=== PATIENT | female | born 1960 | race Native Hawaiian/Other Pacific Islander ===

== ENCOUNTER 2018-10-29 08:50 | Emergency (ER) | payer SELFPAY ==
--- NOTE | 2018-10-29 10:08 | XRay Report ---
ROUTINE CHEST, TWO VIEWS: HISTORY: Chest pain. No comparison. There is very subtle airspace opacity in the left upper lobe and left lower lobe which could represent early pneumonia. The right lung is generally clear. No consolidation, pleural effusion or pneumothorax. Normal heart and mediastinal structures. The bony thorax is intact. IMPRESSION: Subtle infiltration is suspected in the left lung. Correlate for early pneumonia.
[2018-10-29] MEDS ORDERED: ZITHROMAX PO ONE (10:37)
[2018-10-29] MEDS ORDERED: PROVENTIL IH ONE (10:37)
--- NOTE | 2018-10-29 10:45 | Emergency Department Report ---
HPI - General Chief Complaint: Dyspnea/Respdistress Time Seen by Provider: 10/29/18 10:11 - HPI HPI: This is a 58-year-old female with a history of asthma who presents ED complaining of green productive cough 5-6 days. Patient also states that she has not been able to take her albuterol. Patient states the she does not have access to it at the moment. She denies chest pain. Patient admits mild difficulty breathing due to a flare up. She denies fevers/chills/nausea vomiting/chest pain/shortness of breath ED Past Medical Hx - Past Medical History Previous Medical History?: Yes Hx Asthma: Yes Additional medical history: Hypothyroid- not currently on medication due to no insurance - Surgical History Past Surgical History?: No Additional Surgical History: Partial hysterectomy 2000, left foot bunoin removal, screw in left foot - Social History Smoking Status: Never Smoker Substance Use Type: None - Medications Home Medications: Home Medications Medication Instructions Recorded Confirmed Last Taken Type ALBUTEROL Inhaler(NF) [VENTOLIN 1 puff IH BID #1 inha 10/29/18 Unknown Rx Inhaler(NF)] Azithromycin [Zithromax TAB] 500 mg PO QDAY #6 tablet 10/29/18 Unknown Rx Benzonatate [Tessalon Perles] 100 mg PO Q8HR #30 capsule 10/29/18 Unknown Rx Ibuprofen [Motrin] 800 mg PO Q8HR #30 tablet 10/29/18 Unknown Rx ED Review of Systems ROS: Stated complaint: ASTHMA Other details as noted in HPI Comment: All other systems reviewed and negative Physical Exam - Physical Exam Vital Signs: Vital Signs 10/29/18 08:54 Temperature 98.6 F Pulse Rate 94 H Respiratory 16 Rate Blood Pressure 139/85 O2 Sat by Pulse 100 Oximetry Physical Exam: GENERAL: Alert and oriented x3, no apparent distress, Normal Gait, atraumatic. HEAD: Head is normocephalic and a-traumatic. EYES: Extra ocular muscles are intact. Pupils are equal, round, and reactive to light and accommodation. NOSE: Nose symetrical, Nontender,Nares appeared normal. MOUTH:Mouth is well hydrated and without lesions. Tonsils nonerythematous or swollen, Uvula midline, Tongue not elevated. Mucous membranes are moist. Posterior pharynx clear, no exudate or lesions. Patent airways. NECK: Supple. Non edematous, No carotid bruits. No lymphadenopathy or thyromegaly. No C-spine tenderness.This is her muscles LUNGS: Symetrical with respiration, mild wheezing bilaterally , presently coughing intermittently. HEART: S1, S2 present, regular rate and rhythm without murmur, no rubs, no gallops. Non tender to palpation SKIN: Warm and dry, No lesions, No ulceration or induration present. ED Course Vital Signs 10/29/18 08:54 Temperature 98.6 F Pulse Rate 94 H Respiratory 16 Rate Blood Pressure 139/85 O2 Sat by Pulse 100 Oximetry ED Medical Decision Making - Radiology Data Radiology results: report reviewed, image reviewed Fluoro Time In Minutes: ROUTINE CHEST, TWO VIEWS: HISTORY: Chest pain. No comparison. There is very subtle airspace opacity in the left upper lobe and left lower lobe which could represent early pneumonia. The right lung is generally clear. No consolidation, pleural effusion or pneumothorax. Normal heart and mediastinal structures. The bony thorax is intact. IMPRESSION: Subtle infiltration is suspected in the left lung. Correlate for early pneumonia. Transcribed By: TTR Dictated By: LAMIN MAX JR, MD Electronically Authenticated By: LAMIN MAX JR, MD Signed Date/Time: 10/29/18 1004 - Medical Decision Making This 58-year-old female presents with evidence of pneumonia. Patient received 1g of azithromycin in the ED, albuterol treatment. Patient reports feeling better after administration. Discussed follow-up with primary care physician. Patient speaking in clear sentences, has no acute or respiratory distress. - Differential Diagnosis asthma bronchospasm, upper respiratory infection, pneumonia Critical care attestation.: If time is entered above; I have spent that time in minutes in the direct care of this critically ill patient, excluding procedure time. ED Disposition Clinical Impression: Pneumonia, URI with cough and congestion Disposition: DC-01 TO HOME OR SELFCARE Is pt being admited?: No Does the pt Need Aspirin: No Condition: Stable Instructions: Bacterial Pneumonia (ED), Community-acquired Pneumonia (ED), Upper Respiratory Infection (ED) Additional Instructions: Make sure to follow up with the primary care physician as discussed. Take all your medications as you've been prescribed. If you have any worsening symptoms or develop new symptoms please return to ED immediately. Prescriptions: ALBUTEROL Inhaler(NF) [VENTOLIN Inhaler(NF)] 1 puff IH BID #1 inha Azithromycin [Zithromax TAB] 500 mg PO QDAY #6 tablet Benzonatate [Tessalon Perles] 100 mg PO Q8HR #30 capsule Ibuprofen [Motrin] 800 mg PO Q8HR #30 tablet Referrals: NASIMA CORREA MD [Primary Care Provider] - 3-5 Days [facility] [Outside] - 3-5 Days [facility] [Outside] - 3-5 Days Forms: Accompanied Note, Work/School Release Form(ED) Time of Disposition: 10:49
[2018-10-29 11:34] VITALS: BP 122/75
== END 2018-10-29 11:34 | disposition home or self-care (01) ==
LOC: ED 08:50
DX: J18.9 Pneumonia, unspecified organism (principal); J06.9 Acute upper respiratory infection, unspecified; J45.909 Unspecified asthma, uncomplicated; Z90.710 Acquired absence of both cervix and uterus; Z88.0 Allergy status to penicillin
CPT/HCPCS: 71046; 93005; 93010; 94640; 99283

== ENCOUNTER 2019-05-03 21:08 | Emergency (ER) | payer SELFPAY ==
--- NOTE | 2019-05-03 21:33 | Event Note ---
ED Screening Note Date of service: 05/03/19 Time: 21:31 ED Screening Note: This is a 58 y.o. F. that presents with congestion, chest discomfort, and productive cough x 3 days. PMH of asthma Taking mucinex and cough suppressant. This initial assessment/diagnostic orders/clinical plan/treatment(s) is/are subject to change based on patients health status, clinical progression and re- assessment by fellow clinical providers in the ED. Further treatment and workup at subsequent clinical providers discretion. Patient/guardian urged not to elope from the ED as their condition may be serious if not clinically assessed and managed. Initial orders include: CXR
[2019-05-03] MEDS ORDERED: PROVENTIL IH ONE (22:06)
[2019-05-03] MEDS ORDERED: DECADRON IM ONE (22:06)
[2019-05-03] MEDS ORDERED: IBUPROFEN PO ONE (22:06)
--- NOTE | 2019-05-03 22:16 | Emergency Department Report ---
ED General Adult HPI - General Chief complaint: Dyspnea/Respdistress Stated complaint: MIGUELITO Time Seen by Provider: 05/03/19 21:30 Source: patient Mode of arrival: Ambulatory Limitations: No Limitations - History of Present Illness Initial comments: This is a 58 y.o. F. that presents with congestion, chest discomfort, and productive cough x 3 days. PMH of asthma pt states worse at night with increased wheezing. cough productive green Onset/Timin -: week(s) Location: head, chest Quality: aching Consistency: intermittent Improves with: cold therapy Worsens with: none Associated Symptoms: cough, malaise, shortness of breath Treatments Prior to Arrival: none - Related Data Previous Rx's Medication Instructions Recorded Last Taken Type ALBUTEROL Inhaler(NF) [VENTOLIN 1 puff IH BID #1 inha 10/29/18 Unknown Rx Inhaler(NF)] Azithromycin [Zithromax TAB] 500 mg PO QDAY #6 tablet 10/29/18 Unknown Rx Benzonatate [Tessalon Perles] 100 mg PO Q8HR #30 capsule 10/29/18 Unknown Rx Ibuprofen [Motrin] 800 mg PO Q8HR #30 tablet 10/29/18 Unknown Rx ALBUTEROL Inhaler (OR & NICU) 2 puff IH QID PRN #1 inhalation 05/03/19 Unknown Rx [ProAir HFA Inhaler] Azithromycin [Zithromax Z-JOSE CARLOS] 250 mg PO DAILY #6 tab 05/03/19 Unknown Rx Benzonatate [Tessalon Perles] 100 mg PO Q8HR PRN #30 capsule 05/03/19 Unknown Rx Ibuprofen [Motrin 800 MG tab] 800 mg PO Q8HR PRN #30 tablet 05/03/19 Unknown Rx predniSONE [Deltasone] 40 mg PO QDAY 5 Days #10 tab 05/03/19 Unknown Rx Allergies Allergy/AdvReac Type Severity Reaction Status Date / Time Penicillins Allergy Shortness Verified 10/29/18 09:00 of Breath ED Review of Systems ROS: Stated complaint: MIGUELITO Other details as noted in HPI Constitutional: denies: chills, fever Eyes: denies: eye pain, eye discharge, vision change ENT: throat pain, congestion Respiratory: cough, shortness of breath, wheezing Cardiovascular: denies: chest pain, palpitations Endocrine: no symptoms reported Gastrointestinal: denies: abdominal pain, nausea, diarrhea Genitourinary: denies: urgency, dysuria, discharge Musculoskeletal: denies: back pain, joint swelling, arthralgia Skin: denies: rash, lesions Neurological: denies: headache, weakness, paresthesias Psychiatric: denies: anxiety, depression Hematological/Lymphatic: denies: easy bleeding, easy bruising ED Past Medical Hx - Past Medical History Previous Medical History?: Yes Hx Asthma: Yes Additional medical history: Hypothyroid- not currently on medication due to no insurance - Surgical History Past Surgical History?: Yes Additional Surgical History: Partial hysterectomy 2000, left foot bunoin removal, screw in left foot - Social History Smoking Status: Never Smoker Substance Use Type: None - Medications Home Medications: Home Medications Medication Instructions Recorded Confirmed Last Taken Type ALBUTEROL Inhaler(NF) [VENTOLIN 1 puff IH BID #1 inha 10/29/18 Unknown Rx Inhaler(NF)] Azithromycin [Zithromax TAB] 500 mg PO QDAY #6 tablet 10/29/18 Unknown Rx Benzonatate [Tessalon Perles] 100 mg PO Q8HR #30 capsule 10/29/18 Unknown Rx Ibuprofen [Motrin] 800 mg PO Q8HR #30 tablet 10/29/18 Unknown Rx ALBUTEROL Inhaler (OR & NICU) 2 puff IH QID PRN #1 inhalation 05/03/19 Unknown Rx [ProAir HFA Inhaler] Azithromycin [Zithromax Z-JOSE CARLOS] 250 mg PO DAILY #6 tab 05/03/19 Unknown Rx Benzonatate [Tessalon Perles] 100 mg PO Q8HR PRN #30 capsule 05/03/19 Unknown Rx Ibuprofen [Motrin 800 MG tab] 800 mg PO Q8HR PRN #30 tablet 05/03/19 Unknown Rx predniSONE [Deltasone] 40 mg PO QDAY 5 Days #10 tab 05/03/19 Unknown Rx ED Physical Exam - General Limitations: No Limitations General appearance: alert, in no apparent distress - Head Head exam: Present: atraumatic, normocephalic - Eye Eye exam: Present: normal appearance, PERRL, EOMI Pupils: Present: normal accommodation - ENT ENT exam: Present: normal orophraynx, mucous membranes moist, TM's normal bilaterally, normal external ear exam - Neck Neck exam: Present: normal inspection, full ROM. Absent: tenderness, meningismus, lymphadenopathy, thyromegaly - Respiratory Respiratory exam: Present: normal lung sounds bilaterally, wheezes, chest wall tenderness (right lateral chest wall ). Absent: respiratory distress, rales, rhonchi, stridor - Cardiovascular Cardiovascular Exam: Present: regular rate, normal rhythm, normal heart sounds. Absent: systolic murmur, diastolic murmur, rubs, gallop - GI/Abdominal GI/Abdominal exam: Present: soft, normal bowel sounds. Absent: distended, tenderness, bruit, hernia - Rectal Rectal exam: Present: deferred - Extremities Exam Extremities exam: Present: normal inspection, full ROM, normal capillary refill. Absent: tenderness - Back Exam Back exam: Present: normal inspection, full ROM. Absent: tenderness, CVA tenderness (R), CVA tenderness (L), muscle spasm, paraspinal tenderness, rash noted - Neurological Exam Neurological exam: Present: alert, oriented X3, CN II-XII intact, normal gait, reflexes normal. Absent: motor sensory deficit - Psychiatric Psychiatric exam: Present: normal affect, normal mood - Skin Skin exam: Present: warm, dry, intact, normal color. Absent: rash ED Course Vital Signs 05/03/19 05/03/19 05/03/19 21:17 22:39 22:49 Temperature 98.7 F Pulse Rate 85 Pulse Rate [ 80 Posterior Bilateral Throughout] Respiratory 20 20 Rate Respiratory 16 Rate [Posterior Bilateral Throughout] Blood Pressure 152/94 O2 Sat by Pulse 95 Oximetry ED Medical Decision Making - Radiology Data Radiology results: report reviewed, image reviewed cxr improved , wheezing resolved, pt is ambulatory in ed without increased s ymptoms will dc with rx azithromycin, ibuprofen, albuterol, prednisone, tessalone, pt will follow up with pcp in 2-3 days. - Medical Decision Making this is bronchitis plan refill albuterol, azithromycin, ibuprofen, tessalon, prednisone, follow up with pcp in 2-3 days. Critical care attestation.: If time is entered above; I have spent that time in minutes in the direct care of this critically ill patient, excluding procedure time. ED Disposition Clinical Impression: Bronchitis Asthma Qualifiers: Asthma severity: moderate Asthma persistence: unspecified Asthma complication type: unspecified Qualified Code(s): J45.909 - Unspecified asthma, uncomplicated Disposition: DC- TO HOME OR SELFCARE Is pt being admited?: No Does the pt Need Aspirin: No Condition: Stable Instructions: Chronic Bronchitis (ED), Asthma (ED) Prescriptions: predniSONE [Deltasone] 40 mg PO QDAY 5 Days #10 tab Ibuprofen [Motrin 800 MG tab] 800 mg PO Q8HR PRN #30 tablet PRN Reason: pain fever ALBUTEROL Inhaler (OR & NICU) [ProAir HFA Inhaler] 2 puff IH QID PRN #1 inhalation PRN Reason: Shortness Of Breath Benzonatate [Tessalon Perles] 100 mg PO Q8HR PRN #30 capsule PRN Reason: Cough Azithromycin [Zithromax Z-JOSE CARLOS] 250 mg PO DAILY #6 tab
[2019-05-03 23:50] VITALS: BP 148/88
--- NOTE | 2019-05-04 00:11 | XRay Report ---
CHEST 1 VIEW INDICATION: sob and chest pain. COMPARISON: 10/29/2018 FINDINGS: Support devices: None. Heart: Within normal limits. Lungs/Pleura: No acute air space or interstitial disease. Additional findings: None. IMPRESSION: 1. No acute findings. Signer Name: Ruperto Evangelista MD Signed: 05/04/2019 12:06 AM Workstation Name: [id number]
== END 2019-05-03 23:56 | disposition home or self-care (01) ==
LOC: ED 21:08
DX: J45.909 Unspecified asthma, uncomplicated (principal); Z88.0 Allergy status to penicillin; Z98.890 Other specified postprocedural states
CPT/HCPCS: 71046; 94644; J1100; 96372